=== PATIENT | female | born 1955 | race Caucasian/White ===

== ENCOUNTER → 2018-05-11 15:38 | Outpatient (CLI) | payer MEDICAID ==
[2018-05-11 16:10] LABS: HEMATOCRIT 33.3 % (36.0-48.0); HEMOGLOBIN 10.4 g/dL (12-16); MCH 25.1 pg (26.0-34.0); MCHC 31.2 g/dL (31.0-37.0); MCV 80.4 fL (80.0-100.0); MEAN PLATELET VOLUME 10.1 fL (7.4-10.4); PLATELET COUNT 269 10x3/uL (130-400); RBC 4.14 10x6/uL (4.00-5.40); RDW 15.9 % (11.5-14.5); WBC 5.4 10x3/uL (4.8-10.8)
[2018-05-11 16:44] LABS: BASOPHILS 1 % (0-2); LYMPHOCYTES 66 % (15-50); MONOCYTES 3 % (2-11); NEUTROPHILS 30 % (40-80)
[2018-05-11 16:45] LABS: PLATELET ESTIMATE NORMAL
== END | disposition home or self-care (01) ==
LOC: D.LAB 15:38
PROVIDERS: ATTEND Internal Medicine Gastroenterology
DX: R19.5 Other fecal abnormalities (principal)